=== PATIENT | male | born 1975 | race Caucasian/White ===

== ENCOUNTER 2021-04-24 14:02 | Outpatient (REF) | payer OTHER, SELFPAY ==
--- NOTE | ~2021-04-24 | MM_ITS ---
EXAMINATION: MM DIAGNOSTIC DIGITAL BREAST TOMOSYNTHESIS, BILATERAL US DIAGNOSTIC ULTRASOUND BREAST, BILATERAL CLINICAL INFORMATION: 46-year-old male with bilateral breast fullness and tenderness for approximately 3 months. No prior breast imaging. No known family history breast cancer. No discharge. COMPARISON: None (current study represents initial baseline exam). TECHNIQUE: Digital breast tomosynthesis is performed in both the craniocaudal and mediolateral oblique views along with computer-aided detection (CAD). Synthesized 2D images are generated from the tomosynthesis. Ultrasound bilateral breasts is performed, all 4 quadrants on each side. Grayscale imaging and color Doppler are performed without and with harmonics. FINDINGS: There are scattered areas of fibroglandular density (ACR BI-RADS breast composition Category b). There is moderate bilateral gynecomastia parenchymal pattern. No focal mass or architectural abnormality or abnormal calcifications. The axilla and skin contours are unremarkable. No skin thickening. No focal coarsening of the stromal markings. Ultrasound demonstrates no cystic or solid mass or architectural abnormality. No skin thickening or edema tracking in soft tissue planes. Results are discussed with the patient at time of visit, using an health services coordinator. MM/MM tomosynthesis diagnostic BI IMPRESSION: Bilateral gynecomastia. ASSESSMENT: BI-RADS 2: Benign RECOMMENDATION: Patient's breast pain may be managed based on the clinical impression. If there is a focal clinically palpable concern, further evaluation may be considered with surgical consult. Decision to proceed with biopsy should be based on clinical grounds and degree of clinical concern.
== END 2021-04-24 14:03 | disposition home or self-care (01) ==
LOC: HO.MAMMO 14:02
PROVIDERS: Visit Provider Internal Medicine
DX: N64.4 Mastodynia (principal)
CPT/HCPCS: 76642; 77062; 77066

== ENCOUNTER 2021-11-27 22:19 | Emergency (ER) | payer OTHER, SELFPAY ==
[2021-11-27 22:24] VITALS: BP 120/69; PULSE 80; RESP 18; TEMP 36.3; O2SAT 96; BMI 35.3
[2021-11-27 23:30] VITALS: BP 133/71; PULSE 72; RESP 16; TEMP 36.9; O2SAT 93
--- NOTE | 2021-11-27 23:52 | ED.ALLEREA ---
HPI - Allergic Reaction General Chief complaint: Allergic Reaction Stated complaint: allergic reaction Time Seen by Provider: 11/27/21 23:52 Source: patient Mode of arrival: ambulatory Limitations: no limitations History of Present Illness HPI narrative: Patient with no history of any allergic reactions woke up today with hives all over the body with eye swollen went to urgent care center where he was given prednisone and Benadryl he took them at 19:00 and still having the rash including the facial swelling no shortness of breath no throat pain Related Data Previous Rx's Medication Instructions Recorded pramoxine-zinc acetate 1 %-0.1 % 1 appl topical QID PRN skin 11/28/21 lotion (Calamine Clear) irritation #177 mL Allergies Allergy/AdvReac Type Severity Reaction Status Date / Time No Known Allergies Allergy Verified 11/27/21 22:28 Review of Systems Review of Systems: Yes all other systems are reviewed and are negative [facility] Past Medical History Medical History Breast pain Class 2 obesity with body mass index (BMI) of 38.0 to 38.9 in adult Pain in both feet Physical exam Urge urinary incontinence Surgical History History of cholecystectomy Family History Family History Mother No problems noted. Father Peripheral arterial disease Mother Hypertension Social History Social History Housing: House Alcohol intake: current Alcohol intake frequency: holidays/special occasions only Alcohol type: hard liquor Patient Tobacco Use Status: Never used Tobacco e-Cigarette/Vaping Use: Never Used Second Hand Smoke Exposure: No Advance Directives: No service: No Current occupational status: employed Current occupational exposures/hazards: Yes Physical Exam ED Vital Signs: Vital Signs - 24 hr 11/27/21 22:24 11/27/21 23:30 11/28/21 00:23 Temperature 97.4 F 98.4 F 98.0 F Pulse Rate 80 72 81 Respiratory Rate 18 16 16 Blood Pressure 120/69 133/71 127/63 Pulse Oximetry 96 93 98 Oxygen Delivery Method Room Air Room Air Room Air 07/08/22 00:37 Temperature 98.2 F Pulse Rate 87 Respiratory Rate 16 Blood Pressure 125/61 Pulse Oximetry 94 Oxygen Delivery Method Room Air BMI result Body Mass Index 35.3 Appearance: Alert. Oriented X3. No acute distress. ENT: Pharynx normal. Oral Mucosa moist Neck: Normal inspection. Neck supple. CVS: Normal heart rate and rhythm. Pulses normal. Respiratory: No respiratory distress. Equal air entry bilateral, no wheezing/rales/rhonchi Abdomen: Soft and nontender. Bowel sounds are present, no mass palpable, Skin: Skin warm and dry. Medically rash over the forearm swelling of the eyelids Normal skin turgor. Extremities: No lower extremity edema. No calf tenderness Neuro: Oriented X 3. MDM - Allergic Reaction MDM Narrative Medical decision making narrative: Patient with significant attic area with partial response to prednisone and Benadryl was given epinephrine the ER felt better rash improved itching put discharge patient home Discharge Plan Discharge Clinical Impression: Urticaria Patient Disposition: Home, Self-Care Instructions: Urticaria (ED) Additional Instructions: Continue prednisone and Benadryl as prescribed Local calamine lotion for comfort Follow with PCP if not better Prescriptions: New Calamine Clear 1-0.1 % lotion 1 appl topical QID PRN (Reason: skin irritation) Qty: 177 0RF
[2021-11-28] MEDS: EPINEPHrine 1 MG/ML VIAL 0.3 MG IM (00:20)
[2021-11-28] MEDS: diphenhydrAMINE HCL 25 MG TABLET 50 MG PO (00:20)
[2021-11-28 00:23] VITALS: BP 127/63; PULSE 81; RESP 16; TEMP 36.7; O2SAT 98
[2021-11-28 00:37] VITALS: BP 125/61; PULSE 87; RESP 16; TEMP 36.8; O2SAT 94
== END 2021-11-28 01:03 | disposition home or self-care (01) ==
LOC: HO.ED 11-28 01:04
PROVIDERS: Emergency Provider Internal Medicine
DX: L50.9 Urticaria, unspecified (principal)
CPT/HCPCS: 96372; 99284; J0171; Q0163

== ENCOUNTER 2022-05-22 18:05 | Emergency (ER) | payer OTHER, SELFPAY ==
[2022-05-22 19:51] VITALS: BP 136/75; PULSE 89; RESP 16; TEMP 36.7; O2SAT 96; BMI 35.9
--- NOTE | 2022-05-22 19:54 | ED_ITS ---
HPI - Allergic Reaction General Chief complaint: Skin/Abscess/Foreign Body <Jessica Wade CNP - Last Filed: 05/22/22 20:23> Stated complaint: allergic reaction- rash all over body <Jessica Wade CNP - Last Filed: 05/22/22 20:23> Time Seen by Provider: 05/22/22 23:54 <Jessica Wade CNP - Last Filed: 05/22/22 20:23> Source: patient <Gianna Falcon MD - Last Filed: 05/23/22 01:32> Mode of arrival: ambulatory <Gianna Falcon MD - Last Filed: 05/23/22 01:32> Limitations: no limitations <Gianna Falcon MD - Last Filed: 05/23/22 01:32> History of Present Illness HPI narrative: Patient comes emergency room complaining of urticaria. Patient states that the rash started early this morning, took Benadryl early in the morning. Patient states that he has had allergic reactions in the past but he does not know what he is allergic to. Patient has an appointment with an distillery supervisor pending in May. Patient states that the previous time his eyes got swollen and could barely open his eyes. Patient started with a rash on before he had worsening symptoms, he came to the emergency room. Patient states that he has been also having sore throat for last 2 days, has not been taking any medication. Patient has no trouble breathing <Gianna Falcon MD - Last Filed: 05/23/22 01:32> Related Data Home medications: Previous Rx's Medication Instructions Recorded amoxicillin 500 mg-potassium 1 tab PO BID #20 tabs 05/23/22 clavulanate 125 mg tablet (Augmentin) prednisone 50 mg tablet 50 mg PO DAILY #3 tabs 05/23/22 <Jessica Wade CNP - Last Filed: 05/22/22 20:23> Allergies/adverse reactions: Allergies Allergy/AdvReac Type Severity Reaction Status Date / Time No Known Allergies Allergy Verified 05/22/22 19:58 <Jessica Wade CNP - Last Filed: 05/22/22 20:23> Review of Systems Review of Systems: Constitutional : No Weight loss, No Fever, No Chills, No Night Sweats, No Fatigue, No Malaise ENT/Mouth : No Hearing loss, No Ear Pain, No Nasal Congestion, No Sinus Pain, No Hoarseness, complaining of sore throat, No Rhinorrhea, No Swallowing Difficulty Eyes: No Eye Pain, No Swelling, No Redness, No Foreign Body, No Discharge, No Vision Changes Cardiovascular : No Chest Pain, No SOB, No Dyspnea on Exertion, No Orthopnea, No Edema, No Palpitations Respiratory : No Cough, No Sputum, No Wheezing, No Smoke Exposure, No Dyspnea Gastrointestinal : No Nausea, No Vomiting, No Diarrhea, No Constipation, No abdominal Pain, No Hematochezia, No Melena Genitourinary : no irregular bleeding, No Dysuria, No Urinary Frequency, No Hematuria, No Urinary Incontinence, No Urgency, No Flank Pain, No Urinary Flow Changes, No Hesitancy Musculoskeletal : No joint pain, No Myalgias, No Joint Swelling Skin : Complaining of hives in his upper and lower extremities, abdomen and lower back Neuro : No Weakness, No Numbness, No Paresthesias, No Loss of Consciousness, No Dizziness, No Headache Psych : No Anxiety/Panic, No Depression, No SI/HI/AH/VH, No Social Issues, Heme/Lymph: No Bruising, No Bleeding,No Lymphadenopathy Endocrine : No Polyuria, No Polydipsia, No Temperature Intolerance <Gianna Falcon MD - Last Filed: 05/23/22 01:32> [facility] Past Medical History Medical History: Medical History Breast pain Class 2 obesity with body mass index (BMI) of 38.0 to 38.9 in adult Pain in both feet Physical exam Urge urinary incontinence <Jessica Wade CNP - Last Filed: 05/22/22 20:23> Surgical History: Surgical History History of cholecystectomy <Jessica Wade CNP - Last Filed: 05/22/22 20:23> Family History Family History: Family History Mother No problems noted. Father Peripheral arterial disease Mother Hypertension <Jessica Wade CNP - Last Filed: 05/22/22 20:23> Social History Social History: Social History Housing: House Alcohol intake: current Alcohol intake frequency: holidays/special occasions only Alcohol type: hard liquor Patient Tobacco Use Status: Never used Tobacco e-Cigarette/Vaping Use: Never Used Second Hand Smoke Exposure: No Advance Directives: No Advance Directives Information Provided: Yes service: No Current occupational status: employed Current occupational exposures/hazards: Yes Cognitive needs: No Hearing needs: No Vision needs: No <Jessica Wade CNP - Last Filed: 05/22/22 20:23> Physical Exam ED Vital Signs: Vital Signs - 24 hr 05/22/22 19:51 05/22/22 23:53 Temperature 98.1 F 98.8 F Pulse Rate 89 80 Respiratory Rate 16 18 Blood Pressure 136/75 134/77 Pulse Oximetry 96 96 Oxygen Delivery Method Room Air Room Air BMI result Body Mass Index 35.9 <Jessica Wade CNP - Last Filed: 05/22/22 20:23> Vital Signs - 24 hr 05/22/22 19:51 05/22/22 23:53 Temperature 98.1 F 98.8 F Pulse Rate 89 80 Respiratory Rate 16 18 Blood Pressure 136/75 134/77 Pulse Oximetry 96 96 Oxygen Delivery Method Room Air Room Air BMI result Body Mass Index 35.9 <Gianna Falcon MD - Last Filed: 05/23/22 01:32> Const Other: Appearance: Alert. Oriented X3. No acute distress. Eyes: Pupils equal, round and reactive to light. ENT: Erythematous oropharynx, mildly swollen tonsils, no exudates, no abscesses Neck: Normal inspection. Neck supple. No lymph nodes noted. No crepitus CVS: Normal heart rate and rhythm. Pulses normal. Normal S1 and S2 Respiratory: No respiratory distress. Breath sounds normal. No Wheezing. No rales Abdomen: Soft and nontender. No rigidity. No distention. Skin: Skin warm and dry. Hives in upper and lower extremities and lower abdomen and back Extremities: No lower extremity edema. No Lacerations. No Rash Neuro: Oriented X 3. No motor deficit. No sensory deficit. Moving all extremities. No slurred speech. CN 2 through 12 grossly intact Psych: calm, cooperative, normal affect <Gianna Falcon MD - Last Filed: 05/23/22 01:32> Course Course Course Narrative: This is an RME: Additional HPI, ROS, PE not included below will be deferred to primary provider. Patient is a 47-year-old male who presents to the emergency department for evaluation of allergic reaction. Reporting urticaria to the torso, legs, arms with onset of symptoms this morning and progressing throughout the day, reports that he took Benadryl 200 mg orally earlier this morning. He reports that this occurred 1 other time in December 2021 without identifiable etiology, he has an appointment with an distillery supervisor in May 2022. Denies new medications, lotions, soaps, detergents, foods. Denies chest pain, shortness of breath, difficulty breathing, nausea, vomiting, abdominal pain. Declines additional benadryl at this time. PE: LS CTA, tonsillar hypertrophy bilaterally, uvula midline, no stridor, no respiratory distress, no angioedema. <Jessica Wade CNP - Last Filed: 05/22/22 20:23> This is an RME: Additional HPI, ROS, PE not included below will be deferred to primary provider. Patient is a 47-year-old male who presents to the emergency department for evaluation of allergic reaction. Reporting urticaria to the torso, legs, arms with onset of symptoms this morning and progressing throughout the day, reports that he took Benadryl 200 mg orally earlier this morning. He reports that this occurred 1 other time in December 2021 without identifiable etiology, he has an appointment with an distillery supervisor in May 2022. Denies new medications, lotions, soaps, detergents, foods. Denies chest pain, shortness of breath, difficulty breathing, nausea, vomiting, abdominal pain. Declines additional benadryl at this time. PE: LS CTA, tonsillar hypertrophy bilaterally, uvula midline, no stridor, no respiratory distress, no angioedema. No angioedema. Patient receiving IV fluids, Solu-Medrol, Pepcid and Benadryl. Also, patient was tested for strep and COVID/influenza Hives are improving but still present, patient receiving an additional dose of Solu-Medrol 112 mg. Patient tested positive for strep. Patient given 1 dose of Augmentin. <Gianna Falcon MD - Last Filed: 05/23/22 01:32> Medications Administered Discontinued Medications Generic Name Dose Route Start Last Admin Trade Name Gerald PRN Reason Stop Dose Admin Amoxicillin/Clavulanate Potassium 875 mg 05/23/22 01:12 05/23/22 01:20 Amoxicillin/Potassium Clav 875 Mg Tablet PO 05/23/22 01:13 875 mg ONCE ONE Administration Diphenhydramine HCl 50 mg 05/23/22 00:01 05/23/22 00:14 Diphenhydramine Hcl 50 Mg/Ml Vial IVPUSH 05/23/22 00:02 50 mg ONCE ONE Administration Famotidine 20 mg 05/23/22 00:01 05/23/22 00:14 Famotidine/Pf 20 Mg/2 Ml Vial IVPUSH 05/23/22 00:02 20 mg ONCE ONE Administration Sodium Chloride 1,000 mls @ 999 mls/hr 05/23/22 00:01 05/23/22 00:14 Ns IVCONT 05/23/22 01:01 999 mls/hr .Q1H1M ONE Administration Methylprednisolone Sodium Succinate 125 mg 05/23/22 00:01 05/23/22 00:14 Methylprednisolone Sod Succ 125 Mg/2 Ml Vial IVPUSH 05/23/22 00:02 125 mg ONCE ONE Administration <Jessica Wade, SUPERVISOR [employer]ING [employer] - Last Filed: 05/22/22 20:23> Medications Administered Discontinued Medications Generic Name Dose Route Start Last Admin Trade Name Gerald PRN Reason Stop Dose Admin Amoxicillin/Clavulanate Potassium 875 mg 05/23/22 01:12 05/23/22 01:20 Amoxicillin/Potassium Clav 875 Mg Tablet PO 05/23/22 01:13 875 mg ONCE ONE Administration Diphenhydramine HCl 50 mg 05/23/22 00:01 05/23/22 00:14 Diphenhydramine Hcl 50 Mg/Ml Vial IVPUSH 05/23/22 00:02 50 mg ONCE ONE Administration Famotidine 20 mg 05/23/22 00:01 05/23/22 00:14 Famotidine/Pf 20 Mg/2 Ml Vial IVPUSH 05/23/22 00:02 20 mg ONCE ONE Administration Sodium Chloride 1,000 mls @ 999 mls/hr 05/23/22 00:01 05/23/22 00:14 Ns IVCONT 05/23/22 01:01 999 mls/hr .Q1H1M ONE Administration Methylprednisolone Sodium Succinate 125 mg 05/23/22 00:01 05/23/22 00:14 Methylprednisolone Sod Succ 125 Mg/2 Ml Vial IVPUSH 05/23/22 00:02 125 mg ONCE ONE Administration <Gianna Falcon MD - Last Filed: 05/23/22 01:32> Medical Decision Making Differential Diagnosis Differential Diagnoses: The differential diagnosis associated with the presentation includes (Allergic reaction, COVID, influenza, strep) <Gianna Falcon MD - Last Filed: 05/23/22 01:32> Lab Data MDM Lab Attestation statement: I reviewed the patient's lab results. <Gianna Falcon MD - Last Filed: 05/23/22 01:32> Labs: Lab Results 05/23/22 05/23/22 05/23/22 Range/Units 00:36 00:36 00:36 COVID-19 (SULEIMAN) Negative (Negative) COVID-19 Clin Com See Note Influenza Type A (TOREY) Negative (Negative) Influenza Type B (TOREY) Negative (Negative) Influenza A & B Note See Note S. pyogenes GrpA TOREY Positive A (Negative) <Jessica Wade CNP - Last Filed: 05/22/22 20:23> Lab Results 05/23/22 05/23/22 05/23/22 Range/Units 00:36 00:36 00:36 COVID-19 (SULEIMAN) Negative (Negative) COVID-19 Clin Com See Note Influenza Type A (TOREY) Negative (Negative) Influenza Type B (TOREY) Negative (Negative) Influenza A & B Note See Note S. pyogenes GrpA TOREY Positive A (Negative) <Gianna Falcon MD - Last Filed: 05/23/22 01:32> Critical Care Time Critical Care Time Critical Care Time: Yes <Gianna Falcon MD - Last Filed: 05/23/22 01:32> Total Critical Care Time: 40 <Gianna Falcon MD - Last Filed: 05/23/22 01:32> Attestation: I have personally provided critical care time. Time includes review of lab data, radiology results, discussion with consultants, and monitoring for potential decompensation. Intervention performed as documented. <Gianna Falcon MD - Last Filed: 05/23/22 01:32> Discharge Plan Discharge Clinical Impression: Allergic reaction, Strep throat <Jessica Wade CNP - Last Filed: 05/22/22 20:23> Patient Disposition: Home, Self-Care <Jessica Wade CNP - Last Filed: 05/22/22 20:23> Instructions: Pharyngitis (ED), General Allergic Reaction (ED) <Jessica Wade CNP - Last Filed: 05/22/22 20:23> Additional Instructions: Please follow-up with your primary care physician tomorrow. If you have any worsening or new symptoms, please return to the emergency room or call 911 <Jessica Wade CNP - Last Filed: 05/22/22 20:23> Prescriptions: New amoxicillin-pot clavulanate [Augmentin] 500-125 mg tablet 1 tab PO BID Qty: 20 0RF prednisone 50 mg tablet 50 mg PO DAILY Qty: 3 0RF <Jessica Wade CNP - Last Filed: 05/22/22 20:23>
[2022-05-22 23:53] VITALS: BP 134/77; PULSE 80; RESP 18; TEMP 37.1; O2SAT 96
[2022-05-23] MEDS: diphenhydrAMINE HCL 50 MG/ML VIAL IVPUSH (00:14)
[2022-05-23] MEDS: Famotidine/PF 20 MG/2 ML VIAL IVPUSH (00:14)
[2022-05-23] MEDS: methylPREDNISolone Sod Succ 125 MG/2 ML VIAL IVPUSH ×2 (00:14→01:52)
[2022-05-23] MEDS: 0.9 % Sodium Chloride 1,000 ML 999 ML IVCONT (00:14)
--- OUTSIDE RECORDS SUMMARY | 2022-05-23 00:55 | XMS_ITS ---
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 3 ; Pain in left foot M79 .672 ; Pain in right fo ot M79.671 and Prim anurag osteoarthritis, left ankle and foot M 19.072 [facility] [address] Jun, [place] fibromatosis M72 .2 ; [address] Tinea unguium B3 5.1 ; Tinea pedis B35. 3 ; Pain in left foot M79 .672 ; Pain in right fo ot M79.671 and Prim anurag osteoarthritis, left ankle and foot M 19.072 [facility] [address] 08 Jun, 2020 [place] [id number] [facility] [address] May, Plantar [place] fibromatosis M72 .2 ; [address] Tinea unguium B3 5.1 ; Tinea pedis B35. 3 ; Pain in left foot M79 .672 ; Pain in right fo ot M79.671 ; Primar y osteoarthritis, left ankle and foot M 19.072 and Sprain of an terior talofibular liga ment of left ankle, init ial encounter S93.49 2A [facility] [address] May, [facility] [place] fibromatosis M7 2.2 ; [address] Tinea unguium B3 5.1 ; Tinea pedis B35. 3 ; Pain in left foot M79 .672 and Pain in right fo ot M79.[address] Apr, [place] [facility] [place] [address] Apr, 2019 [facility] [place] [address] Apr, [facility] [place] [address] Apr, Evelyne ntar fascial [place] fibromatosis M7 2.2 ; [address] Tinea unguium B3 5.1 ; Tinea pedis B35. 3 ; Pain in left foot M79 .672 and Pain in right fo ot M79.671 IMMUNIZATIONS Vaccine Route Administration Date Status COVID-19 Moderna Vaccine Unknown September 28, 2020 Adminis tered SOCIAL HISTORY Qualifiers Date Never Smoker REASON FOR REFERRAL FUNCTIONAL STATUS PLAN OF CARE Activity Details Follow Up prn Reason: Pending Test X ray : Ankle, right 3V Pending Test *Liver Function Test (LFT) Pending Test X ray : Foot, left 3V Pending Test X ray : Foot, right 3V Future/Pending Procedure [id number] TENDON SHEAT H/LIGAMENT VITAL SIGNS Height 6 ft 2 in in 2020-10-01 Weight 298 lbs 2020-10-01 BMI 38.26 kg/m2 2020-10-01 Temperature 97.4 degrees Fahrenheit 2020-10-01 MEDICATIONS Medication Instructions Dosage Frequency Start End Duration Statu s Date Date ASO Wear Daily As directed 24h May, as needed Active Ankle/Foot 2020 Stablizing AFO Physical . 2-3x/week . May, 3-4 weeks Active Therapy . 2020 Diflucan 200 Orally qd 1 tablet 24h 30 days Not-Taki MG ng Ciclopirox Externally 1 application Apr, 30 days Not- Taki Olamine 0.77 Twice a day to to affected 2019 ng % effected areas area on feet Night Splint as directed Apr, Active AFO - L1930 2019 Ibuprofen 800 Orally Three 1 tablet with 8h 01 October, 30 days Active MG times a day food or milk 2020 as needed LamISIL 250 Orally Once a 1 tablet 24h Apr, 30 days Activ e MG day 2019 PROCEDURES Procedure Date Ordered Result Body Site INJ BETAMETHSN ACTAT&SOD PHOSPH-3MG Jun 14, 2020 X-RAY EXAM OF RIGHT ANKLE 3V Jun 14, 2020 Insoles-Soft sole ($50) May 01, 2020 INJ TENDON SHEATH/LIGAMENT Jun 14, 2020 X-RAY EXAM OF LEFT FOOT 3V May 01, 2020 AFO ANK GAUNTLT PREFAB W FIT ADJ Jun 14, 2020 X-RAY EXAM OF RIGHT FOOT 3V May 01, 2020 RESULTS No Results REASON FOR VISIT Insurance Providers Count Includes [facility] Health Member Patient Patient Patient Patient Patient Subscriber Subscriber Subscriber Group Insurance Plan Plan Plan Plan ID Relationship Address Phone Name Date of ID Name Date of No Type Insurance Insurance Insurance Coverage to Subscriber Address Phone Name Dates [facility] [phone] R self John [id number] [address] [facility] [address] MEDICAL (GENERAL) HISTORY Type Description Date Medical History Gall bladder problems Medical History Chicken pox Surgical History gall bladder removal 2016
[2022-05-23 01:02] LABS: IDNOW Serial# 6674DD1D; Strep A Nucleic Acid Positive (Negative)
[2022-05-23 01:16] LABS: COVID-19 Test Negative (Negative); IDNOW Serial# BCCEAD1C
[2022-05-23 01:18] LABS: IDNOW Serial# 16C4AD1C; Influenza A Negative (Negative); Influenza B2 Negative (Negative)
[2022-05-23] MEDS: Amoxicillin/Potassium Clav 875 MG TABLET PO (01:20)
--- NOTE | 2022-05-23 02:02 | PC.NURSE ---
pt medicated according to mar. pt's at bedside. pt ambulatory at discharge. pt reports no pain at this time. discharge packet and work note provided to pt at this time. pt verbalized understanding of discharge plan
== END 2022-05-23 02:04 | disposition home or self-care (01) ==
PROVIDERS: Emergency Provider Emergency Medicine; PCP Internal Medicine
DX: T78.40XA Allergy, unspecified, initial encounter (principal); L50.9 Urticaria, unspecified; X58.XXXA Exposure to other specified factors, initial encounter; J02.0 Streptococcal pharyngitis; Z20.822 Contact with and (suspected) exposure to COVID-19; E66.9 Obesity, unspecified; Z68.35 Body mass index [BMI] 35.0-35.9, adult
CPT/HCPCS: 87502; 87635; 87651; 96361; 96374; 96375; 96376; 99284; J1200; J2930